=== PATIENT | female | born 1980 ===

== ENCOUNTER 2022-05-08 07:53 | Outpatient (CLI) | payer BC, SELFPAY ==
--- NOTE | ~2022-05-08 | NM_ITS ---
EXAMINATION: NM hepatobiliary wo pharm DATE: 05/08/2022 12:39 INDICATION: Right upper quadrant abdominal pain COMPARISON: None. TECHNIQUE: 4.9 mCi Tc-99m mebrofenin (Choletec) was administered intravenously. Scintigraphic images of the abdomen were obtained for one hour. Additional delayed anterior and right lateral scintigrams were obtained at 4 hours. FINDINGS: There is normal clearance of radiotracer from the blood pool. There is homogeneous tracer u ptake by the liver. Activity progresses to the common bile duct and bowel with activity first eviden t on the 10 minute image. Activity is seen within the gallbladder on the 4 hour delayed images. IMPRESSION: 1. Normal hepatic clearance of activity and patent cystic and common bile ducts as evidenced by acti vity extending into the bowel and gallbladder. Reviewed, dictated and finalized at location A. IMPRESSION: 1. Normal hepatic clearance of activity and patent cystic and common bile duct s as evidenced by activity extending into the bowel and gallbladder.
== END 2022-05-08 07:54 | disposition home or self-care (01) ==
PROVIDERS: PCP Internal Medicine; Visit Provider Internal Medicine Gastroenterology
DX: R10.11 Right upper quadrant pain (principal)
CPT/HCPCS: 78226; A9537